=== PATIENT | female | born 1965 | race Caucasian/White ===

== ENCOUNTER → 2016-10-24 | Outpatient (CLI) | payer OTHER | LOC: MAMO 10:00 | DX: Z12.31 Encounter for screening mammogram for malignant neoplasm of breast (principal); Z85.3 Personal history of malignant neoplasm of breast; Z90.12 Acquired absence of left breast and nipple | CPT/HCPCS: 93005; G0202 ==

== ENCOUNTER 2020-04-04 11:06 | Emergency (ER) | payer OTHER ==
[~2020-04-04 11:06] MED LIST: AMOX TR-K CLV1 EAC4 PO; CALCIUM600 MG PO; FERROUS SULFAT325 MG PO; HYDROXYZINE HCL10 MG PO; KEPPRA 500 MG500 MG PO; LOPRESSOR 25 MG25 MG PO; MAGNESIUM OXID400 MG PO; NAPROSYN500 MG PO; NEURONTIN 100100 MG PO; NORCO 5-325 TA1 EACH PO; OMEPRAZOLE20 MG PO; PROAMATINE 2.52.5 MG PO; PROTONIX40 MG PO; SODIUM CHLORIDE1 G1 PO; TAB-A-VITE1 EACH PO; THERAGRAN TAB1 EA PO; TOPROL XL25 MG PO; TYLENOL 325MG325 MG PO; VITAMIN B-1 5050 MG PO; ZANTAC150 MG PO
[2020-04-04 12:28] LABS: RED BLOOD COUNT 4.03 M/UL (4.00-5.10); WHITE BLOOD COUNT 5.5 K/UL (4.5-11.0)
[2020-04-04 12:45] LABS: BUN/CREATININE RATIO 15 (0-10)
[2020-04-04] MEDS ORDERED: KEPPRA1000 MG PO (14:06)
== END 2020-04-04 15:37 | disposition home or self-care (01) ==
LOC: ER1 11:06
PROVIDERS: Student in an Organized Health Care Education/Training Program
DX: G40.409 Other generalized epilepsy and epileptic syndromes, not intractable, without status epilepticus (principal); F17.210 Nicotine dependence, cigarettes, uncomplicated; Z79.899 Other long term (current) drug therapy; Z20.822 Contact with and (suspected) exposure to COVID-19
CPT/HCPCS: 0240U; 36415; 70450; 80053; 80307; 81001; 82550; 82553; 83874; 84484; 84703; 85025; 85610; 85730; 93005; 96365; 99284; G0480; J1953

== ENCOUNTER 2020-08-25 18:36 | Observation (INO) | payer OTHER ==
[~2020-08-25] VITALS: Ht 167.6 cm; Wt 54.6 kg
[~2020-08-25 18:36] MED LIST changes: +KEPPRA1000 MG PO
[2020-08-25 19:27] LABS: RED BLOOD COUNT 3.78 M/UL (4.00-5.10); WHITE BLOOD COUNT 3.4 K/UL (4.5-11.0)
[2020-08-25 19:47] LABS: BUN/CREATININE RATIO 18 (0-10)
[2020-08-26 02:57] LABS: HEMOGLOBIN 11.7 gm/dl (12.3-15.3); RED BLOOD COUNT 3.61 M/UL (4.00-5.10)
[2020-08-26 02:59] LABS: WHITE BLOOD COUNT 4.4 K/UL (4.5-11.0)
[2020-08-26 03:39] LABS: BUN/CREATININE RATIO 14 (0-10)
--- NOTE | 2020-08-26 03:53 | NUR ---
232 LAB CALLED WITH TROPONIN 0.71 MAG 1.0 LACTIC 22.5. PT STATES SHE HAS NO CHEST PAIN, AWAKES UP WHEN SPOKEN TO ANSWERS AND THEN GOES BACK TO SLEEP. BP 121/70 HR 128 ORDER FOR MAG 2 GM IV X1 NOW ASPIRIN 81 MG NOW REPEAT CARDIACS AND MAG IN 3 HRS EKG STAT. PT EKG CHANGES REPORTED TO DR. BELL, WITH NO NEW ORDERS. 341 LAB CALLED WITH K+ 3.0 TROPONIN 1.79 MAG 2.1 BP 92/63 HR 116 PT STILL NO CHEST PAIN OR DISTRESS. ORDER TO REPLACE K+
[2020-08-26 11:44] LABS: BUN/CREATININE RATIO 12 (0-10)
[2020-08-27 05:28] LABS: HEMOGLOBIN 11.4 gm/dl (12.3-15.3); RED BLOOD COUNT 3.34 M/UL (4.00-5.10); WHITE BLOOD COUNT 5.7 K/UL (4.5-11.0)
[2020-08-27 05:57] LABS: BUN/CREATININE RATIO 8 (0-10)
[2020-08-27] MEDS ORDERED: ASPIRIN81 MG PO (15:16)
[2020-08-27] MEDS ORDERED: VITAMIN B-1100 MG PO (15:16)
[2020-08-27] MEDS ORDERED: MAG-OX 400 TAB400 MG PO (15:16)
[2020-08-27] MEDS ORDERED: FOLIC ACID 1 MG1 MG PO (15:16)
[2020-08-28 04:49] LABS: HEMOGLOBIN 10.7 gm/dl (12.3-15.3); RED BLOOD COUNT 3.14 M/UL (4.00-5.10); WHITE BLOOD COUNT 6.3 K/UL (4.5-11.0)
[2020-08-28 05:16] LABS: BUN/CREATININE RATIO 7 (0-10)
[2020-08-28] MEDS ORDERED: NICOTINE PATCH1 EAC1 TOP (10:24)
[2020-08-28] MEDS ORDERED: NEBULIZER UNIT NEB (10:24)
[2020-08-28] MEDS ORDERED: IPRAT-ALBUT 0.5-3 ML NEB (10:24)
[2020-08-28] MEDS ORDERED: SODIUM CHLORIDE1 GM PO (10:25)
== END 2020-08-28 13:40 | disposition home or self-care (01) ==
LOC: ER1 18:36 → CDU 21:22 → M/S 21:22
PROVIDERS: Internal Medicine; Physician Assistant Medical; Preventive Medicine Occupational Medicine; ADMIT Internal Medicine
PROC: 4A00X4Z Measurement of Central Nervous Electrical Activity, External Approach (ICD-10-PCS; principal; 2020-08-26)
PROC: B24BZZZ Ultrasonography of Heart with Aorta (ICD-10-PCS; 2020-08-27)
PROC: 4A02XM4 Measurement of Cardiac Total Activity, External Approach (ICD-10-PCS; 2020-08-27)
PROC: 3E033HZ Introduction of Radioactive Substance into Peripheral Vein, Percutaneous Approach (ICD-10-PCS; 2020-08-27)
DX: G40.909 Epilepsy, unspecified, not intractable, without status epilepticus (principal); I21.A1 Myocardial infarction type 2; J96.01 Acute respiratory failure with hypoxia; E87.1 Hypo-osmolality and hyponatremia; E87.2 Acidosis; Z20.822 Contact with and (suspected) exposure to COVID-19; R73.9 Hyperglycemia, unspecified; E83.42 Hypomagnesemia; F17.200 Nicotine dependence, unspecified, uncomplicated; J44.9 Chronic obstructive pulmonary disease, unspecified; E87.6 Hypokalemia; I27.20 Pulmonary hypertension, unspecified; D69.6 Thrombocytopenia, unspecified; F10.20 Alcohol dependence, uncomplicated; Z91.19 Patient's noncompliance with other medical treatment and regimen; Z85.3 Personal history of malignant neoplasm of breast; Z90.10 Acquired absence of unspecified breast and nipple; Z87.81 Personal history of (healed) traumatic fracture; Z81.1 Family history of alcohol abuse and dependence; Z84.89 Family history of other specified conditions; Z83.3 Family history of diabetes mellitus; Z79.899 Other long term (current) drug therapy
CPT/HCPCS: ECHO; 0240U; 36415; 36600; 70450; 71045; 78452; 80048; 80053; 80307; 81001; 82009; 82140; 82550; 82553; 82803; 82962; 83036; 83605; 83735; 83874; 83880; 84132; 84484; 85025; 85027; 85652; 86140; 87040; 87086; 93005; 93017; 93306; 94640; 94760; 95816; 96374; 96375; 96376; 97161; 99285; A9502; G0378; G0480; J1953; J2060; J2785; J3411; J3475; J3480; J7030

== ENCOUNTER → 2021-03-17 | Outpatient (CLI) | payer OTHER ==
[~2021-03-17] MED LIST changes: +ASPIRIN81 MG PO; +FOLIC ACID 1 MG1 MG PO; +IPRAT-ALBUT 0.5-3 ML NEB; +MAG-OX 400 TAB400 MG PO; +NEBULIZER UNIT NEB; +NICOTINE PATCH1 EAC1 TOP; +SODIUM CHLORIDE1 GM PO; +VITAMIN B-1100 MG PO
== END ==
LOC: KOH-I 11:22
DX: R09.89 Other specified symptoms and signs involving the circulatory and respiratory systems (principal); I65.23 Occlusion and stenosis of bilateral carotid arteries
CPT/HCPCS: 93880

== ENCOUNTER → 2021-04-05 | Outpatient (CLI) | payer OTHER | LOC: CT 08:30 | DX: I65.23 Occlusion and stenosis of bilateral carotid arteries (principal); R06.02 Shortness of breath | CPT/HCPCS: ECHO; 70498; 93306; Q9967 ==

== ENCOUNTER → 2021-05-09 | Outpatient (CLI) | payer OTHER | LOC: HEART 5 14:13 | DX: J44.9 Chronic obstructive pulmonary disease, unspecified (principal) | CPT/HCPCS: 94060; 94729 ==

== ENCOUNTER → 2021-10-18 | Outpatient (CLI) | payer OTHER ==
[~2021-10-18] MED LIST changes: +B-1100 MG PO; +FAMOTIDINE20 MG PO; +FOLIC ACID1 MG PO; +LEVETIRACETAM1000 MG PO; +NAPROXEN500 MG PO; +NICOTINE PATCH1 EAC2 TD
== END ==
LOC: HEART 5 10-10 08:45
DX: R94.31 Abnormal electrocardiogram [ECG] [EKG] (principal)
CPT/HCPCS: 78452; A9502; J2785